=== PATIENT | female | born 1990 | race Caucasian/White ===

== ENCOUNTER 2016-08-23 04:58 | Inpatient (IN) | payer MEDICAID, OTHER ==
[2016-08-23] MEDS ORDERED: Magnesium Hydroxide 10 mL Oral Concentration PO PRN (10:00)
[2016-08-23] MEDS ORDERED: LORazepam 1 mg Tablet PO PRN (10:00)
[2016-08-23] MEDS ORDERED: Zolpidem 5 mg Tablet for FEMALE or >65YO PO PRN (10:00)
[2016-08-23] MEDS ORDERED: Benzocaine-Menthol Lozenge 2/Pkg PO PRN (10:00)
[2016-08-23] MEDS ORDERED: Alum-Mag Hydrox-Simeth 30 mL Suspension PO PRN (10:00)
[2016-08-23] MEDS ORDERED: FLUT15.88 NS (10:35)
[2016-08-23] MEDS ORDERED: ALBU8.5H2 INHALATION (10:35)
[2016-08-23] MEDS ORDERED: GABA600T2 PO ×2 (10:35→10:49)
[2016-08-23] MEDS ORDERED: PREG25CA PO (10:35)
[2016-08-23] MEDS ORDERED: DIAZ5TAB3 PO (10:35)
[2016-08-23] MEDS ORDERED: PROZ20 PO (10:35)
[2016-08-23] MEDS ORDERED: GABA-502 PO (10:49)
[2016-08-23] MEDS ORDERED: KLO5T PO (10:49)
[2016-08-23] MEDS ORDERED: BUSP15TA3 PO (10:49)
[2016-08-23] MEDS ORDERED: PROP20SO PO (10:49)
--- NOTE | 2016-08-23 11:19 | NUR ---
Admission note 26 year old female admitted for depression. Pt's mom 2 weeks ago. Her mom of alcoholism. Pt. states her brother and father live in [facility] [place]. She states she does not have any friends. She has a history of PTSD and used marijuana. She is lethargic and feels like everything is overwhelming, she feels dysregulated and she can't keep herself safe outside of the hospital. She is disheveled in appearance, pale and looks malnourished. She reports she only eats sometimes and she only sleeps sporadically with weird dreams. She is oriented to unit and independent with ADL's. She rates her depression and anxiety at 9/10. She reports no pain and rated SI at 7/10.
[2016-08-23] MEDS ORDERED: SENN-133 PO (11:47)
[2016-08-23] MEDS ORDERED: CLON0.122 PO (11:47)
[2016-08-23] MEDS ORDERED: LURA80TA3 PO (11:47)
[2016-08-23] MEDS ORDERED: LURA20TA PO (11:47)
[2016-08-23] MEDS ORDERED: SULI200T79 PO (11:47)
--- NOTE | 2016-08-23 14:01 | NUR ---
PRN med 1 mg. of Valium given PO per request for anxiety rated at 12/07 at 1346. Pt. was tearful after speaking to her father.
[2016-08-23] MEDS ORDERED: Albuterol HFA 60 Puff 8 Gm Inhaler INHALATION PRN (16:55)
[2016-08-23] MEDS ORDERED: Sodium Chloride NAS 45 mL Spray NASAL PRN (17:05)
--- NOTE | 2016-08-23 18:43 | NUR ---
Observations [id number] Pt admitted on unit at 0900 . Pt very anxious, not wanting to eat meals or participate in activities on unit. Pt states she is very depressed, expressing she doesn't want to be here and doesn't feel like she fits in. Pt remained in room, did not eat lunch, came out for dinner after staff encouragement and asked to return to room, not eating. Pt was observed crying in room. She was observed every 15 minutes of shift as directed.
[2016-08-23] MEDS: BusPIRone 15 mg Dividose Tablet PO SCH (21:23)
--- NOTE | 2016-08-23 21:36 | HP ---
[address] [address] HISTORY AND PHYSICAL PATIENT: ELENO MIGUEL : 1990 MR#: [id number] ADMIT: 08/23/2016 JOB ID: [id number] IDENTIFYING DATA: The patient is a 26-year-old female with a history of mood swings and self-reported bipolar disease, OCD, and borderline personality disorder, who presents with worsening suicidal ideation and inability to guarantee safety in the community and is admitted on a voluntary basis. REFERRAL INFORMATION: The patient is referred by [facility] in [place], [place]. CHIEF COMPLAINT: " I am really dysregulated and depressed and anxious." HISTORY OF PRESENT ILLNESS: The patient had apparently presented to [facility] and had worked out a safety plan with the director social service, but did not feel that she could adhere to it given her temporary living status. She therefore presented to [facility] for further assessment. The patient had recently been in [facility] starting in June and was released on August 15, 2016, in order to go to [place] [address] for treatment of marijuana use. The patient remained at [place] [address] from August 15 to August 18 and reportedly self-discharged. She reported that her father, who lives in [place], had wanted her to go there because of her cannabis use. She is currently staying with friends and is feeling uncomfortable and somewhat paranoid of them as they are using cannabis and other drugs and she feels the living situation is unsafe. In addition, the patient's mother a few weeks ago and her father does not feel she is stable enough to attend the . It is unclear what he is concerned of, but she speculates that he believes that she may make a scene at the . The patient's father is reportedly setting up a trust fund for the patient with money that her mother had left her and this will allow her to eventually rent an apartment, but she is unsure when that will occur. She reportedly can go to visit her father in [place] on August 31. The patient reports the 1st onset of psychiatric symptoms at age 13 and reports multiple inpatient hospitalizations. She self-reports a history of OCD, borderline personality disorder and bipolar disorder. On further assessment, she denies specific rituals or compulsions but does appear to be come perseverative as part of an overall anxiety picture when under stress. She does have a history of tumultuous relationships and self-injurious behavior and affect is instability. She does not present with any history of sustained manic behavior lasting more than a day or any hallucinations or other psychotic features. The patient reports that her mood shifts throughout the day in response to various stressors. She reports her anxiety is currently 10/10 and her depression is 10/10. She reports sleeping 1-2 hours at a time at night. Her appetite is decreased and her energy varies and is somewhat erratic, up or down. Her libido has been decreased for the last week. PAST PSYCHIATRIC HISTORY: Inpatient: The patient's 1st inpatient hospitalization was at age 21. Most recently, she was at [facility] from June to August 15 and reports approximately 30 days. She reports multiple inpatient hospitalizations. Outpatient: She is followed by Dr. Sandhu at [facility] the [facility] in [place]. PAST PSYCHIATRIC MEDICATIONS: Fluoxetine had been quite helpful for the patient. However, they reduced it from 60 to 40 while she was at [facility] in order to start Latuda. The patient has stopped Latuda due to it making her feel "weird" and does not desire to continue taking it. She reports she would prefer to increase her fluoxetine. This has not resulted in increased manic behavior according to the patient. Zoloft and Paxil were ineffective and Effexor caused significant withdrawal side effects. Depakote made her sick, and lithium, she did not like the feeling. She has never been tried on Cymbalta or Trileptal. She denies a history of actual suicide attempts and reports cutting on herself a couple of times in her 20s. FAMILY HISTORY: Significant for a mother with alcohol use and unclear mental illness. She denies a family history of suicide attempts. Her mother has a history of alcoholism. Her maternal grandfather and maternal aunt also had problems with alcohol. She denies any history of family medical illness. SOCIAL HISTORY: The patient was born and raised in [place] and has one younger brother, age 20, who lives in [place]. She completed high school and attended [employer] for two years. She has never been in the . She has not worked since last year but worked at a homeless youth halfway most recently. She is applying for disability and currently receives 197 dollars per month as well as food stamps. She is currently living with friends and staying on their couch. Her parents were together until she was 18, at which point, they split and she lived with her mother until the age of 19 when she went to college. She is not currently in a relationship and has no children. Her mother was reportedly emotionally abusive due to alcoholism. She denies any legal history. SUBSTANCE USE HISTORY: The patient denies use of alcohol and used marijuana "a lot" in the past but has only used it once since her discharge from [place] [address] on the August 18. She denies a history of cocaine, amphetamine, LSD, IV drugs, heroin, huffing or tobacco use. Her only inpatient substance treatment was at [place] [address] for marijuana. MEDICAL PROBLEMS: The patient denies current medical issues, history of loss of consciousness or seizure disorder. CURRENT MEDICATIONS: The patient had been most recently prescribed the following medications: 1. Senokot 8.6 mg twice a day. Patient reports not taking. 2. Sulindac 200 mg twice a day. The patient reports not taking. 3. Latuda 80 mg nightly with dinner. Not taking. 4. Neurontin 300 mg capsule three times a day. Occasionally taking. 5. Trazodone 100 mg nightly. Not taking. 6. Propranolol 10 mg one tablet three times a day. 7. Fluticasone nasal spray two sprays in affected nostril twice a day. 8. ProAir inhaler two puffs by mouth every 4 hours as needed for asthma due to allergy. 9. Prozac 40 mg daily. 10. Neurontin 600 mg nightly at bedtime. 11. Buspirone 15 mg twice daily. 12. Latuda 20 mg twice a day at lunch and at dinner. Not taking. 13. Vitamin D3 2000 units daily. Not taking due to cost. 14. Saline nasal spray two sprays in each nostril four times a day. ALLERGIES: The patient reports allergies that but does not recall medications. LABORATORY FINDINGS: CBC within normal limits. CMP within normal limits except for glucose of 106, nonfasting, and a GFR of 102. Urine tox screen was positive for cannabinoids. Urine was negative. Urinalysis was within normal limits. Vital signs as of midnight, temperature 36.7, heart rate 78, pulse of 80, respiratory rate 17. Blood pressure 108/77, 99% on room air. MENTAL STATUS EXAMINATION: Appearance: The patient is a somewhat unkempt-appearing female with light blue highlights in her hair, which is in disarray. Behavior: The patient is somewhat tearful in the examination and declines to leave the patient's room but does participate with the exam and makes fairly good eye contact. No psychomotor agitation or retardation is noted. Mood: "Anxious." Affect sad to anxious. Speech: Normal rate, volume, and tone. Content of thought: The patient reports that is unsure about suicidal ideation, but agrees to safety in the hospital. She denies homicidal ideation, auditory or visual hallucinations or thought control. She endorses mild paranoia due to being at her friend's house. Insight: Fair. Judgment: Fair. Thought processes: Linked, linear and goal directed. Memory and concentration: Grossly intact. Intelligence: In the average range based upon history and vocabulary. Orientation: She is alert and oriented to August 23, 2016, [place] "something" [place], [place]. Sensorium: Overall intact without evidence of delirium or dementia. IMPRESSION: The patient is a 26-year-old female with a history of multiple inpatient hospitalizations and rapidly fluctuating mood disorder with self-reported borderline personality disorder and bipolar disorder. The patient appears to meet criteria for at least generalized anxiety disorder but it is unclear whether she meets criteria for obsessive compulsive disorder. She does not appear to meet criteria for bipolar I disorder, and did not also appear to meet criteria for bipolar II disorder, but her affect of instability appears to be primarily due to borderline personality disorder. The patient would prefer to optimize her antidepressant and anxiolytic medication prior to her potential return to [place]. PROVISIONAL DIAGNOSES: Lena I. 1. Mood disorder, unspecified versus major depressive disorder, recurrent, without psychotic features. 2. Generalized anxiety disorder. 3. Rule out panic disorder. 4. Rule out obsessive compulsive disorder. Lena II. Borderline personality disorder by history. Lena III. None acute. Lena IV. Severe with recent of mother, homelessness, unemployed, poor coping skills. Lena V. Global Assessment of Functioning is 35. PLAN: 1. The patient will be admitted to the unit and provided a safe and secure environment. 2. The patient will be encouraged to participate with groups and other milieu activity. 3. The patient will be seen by the treatment team on a daily basis to assess symptom side effects and response to treatment. 4. The patient is currently denying suicidal ideation while in the hospital and agrees to safety and is therefore not in need of a one-to-one at this time. 5. The patient's medications will be adjusted as follows: a. Latuda will be discontinued as the patient has not been taking it and the patient declined Senokot and Sulindac. b. The patient is currently receiving Neurontin for reportedly anxiety and has no medical indication for this medication. This will be gradually tapered and currently will be reduced to only 600 mg at bedtime. c. Trazodone will be discontinued and replaced with mirtazapine for insomnia. d. Prozac will be increased to 60 mg. e. Buspirone will be increased to 20 mg twice daily. 6. The patient will use CBT worksheets and declines at this time tonight but agrees to work on them tomorrow as she has found this effective. 7. Anticipated length of stay is 5-7 days. 8. Will attempt to obtain records from [facility], although with the holiday weekend, this may be difficult prior to Thursday. GUANAKO
--- NOTE | 2016-08-23 22:04 | NUR ---
NURSING NOTE [id number] Mood: "really anxious" *cries* Affect: anxious, sad Behavior: isolating to her room the entire shift other than to come out for her dinner, of which she ate picked at. Declined to attend rec group but did attend wrap-up, declined other suggestions for activities (coloring, reading, movie night w/peers). Med compliant. Thought processes: endorsing high anxiety this evening; 12/07, depression, feeling hopeless and helpless. She denies SI/HI. She expressed to this clinical writer that she does not want to be here and that she feels it is the wrong place for her because "the people here are lower functioning than me" and she feels she doesn't belong here. She did say she knows she needs to stay here because "I have nowhere else to go." Reports now that her mother has passed she has nowhere to live and her father will only let her visit him but not live with him. Reports she has also been forbidden from attending her mother's as several of her family members are upset with her. PRNs Valium 1 mg @ 17:45
--- NOTE | 2016-08-24 06:34 | NUR ---
Nursing notes: molded parts inspector/ sleep Patient appears to be sleeping on safety checks during the night. Voices no complaints.
[2016-08-24] MEDS: Fluticasone 0.05% 15 Spray/2 Gm 16 Gm Nasal Spray NASAL SCH (08:13)
[2016-08-24] MEDS: BusPIRone 15 mg Dividose Tablet PO SCH ×2 (08:14→20:33)
--- NOTE | 2016-08-24 13:36 | PCM.PNPSY ---
Subjective Date of Service August 24, 2016 Subjective The patient reports that she is feeling better on this combination of medications. However, she still reports feeling unstable and having ongoing ruminative thoughts. She also endorses some racing thoughts. Although still quite high, she reports some improvement in anxiety and depression. She is denying medication side effects. She is reporting that she does not have suicidal ideation in the hospital but is unsure whether she could be safe upon discharge. The patient reports that she does not care for the milieu and feels that the patients are more severe than she had anticipated. She is requesting a transfer to another hospital. At present, [facility], [facility], and [facility] are all full. The patient was agreeable to working on CBT worksheets as discussed yesterday. Sleep: 8 hours, improved, but disrupted by patient activity early in the morning. Appetite: "A little better" Suicidal and homicidal ideation: Denies SI but reports unsure whether she will be safe upon discharge. No homicidal ideation. Auditory hallucinations: Denies Visual hallucinations: Denies Other Psychotic Symptoms: N/A Anxiety: 10 Depression: 8-12/07 Current Medications Current Medications Buspirone HCl 20 mg BID PO Last administered on 08/24/16 08:14; Admin Dose 20 MG; Start 08/23/16 at 20:30 Cholecalciferol 2,000 unit ONCE ONCE PO Last administered on 08/23/16 21:21; Admin Dose 2,000 UNIT; Start 08/23/16 at 17:05; Stop 08/23/16 at 17:18; Status DC Diazepam 1 mg Q4 PRN PO Last administered on 08/24/16 13:10; Admin Dose 1 MG; Start 08/23/16 at 13:05 Fluoxetine HCl 60 mg DAILY PO Last administered on 08/24/16 08:16; Admin Dose 60 MG; Start 08/24/16 at 08:30 Fluticasone Propionate 1 spray DAILY NASAL Last administered on 08/24/16 08:13 ; Admin Dose 1 SPRAY; Start 08/24/16 at 08:30 Gabapentin 600 mg HS PO Last administered on 08/23/16 21:29; Admin Dose 600 MG ; Start 08/23/16 at 20:30 Mirtazapine 15 mg HS PO Last administered on 08/23/16 21:26; Admin Dose 15 MG; Start 08/23/16 at 21:00 Propranolol HCl 10 mg TID PO Last administered on 08/24/16t 08:15; Admin Dose 10 MG; Start 08/23/16 at 20:30 Mental Status Exam Appearance: Unkept Attitude: Cooperative, Guarded Behavior: No unusual behavior Affect: Blunted Mood: Depressed, Anxious Thought Process/Associations: Logical/Sequential Speech Production: Normal Speech Rate: Lags/Latency Speech Articulation: Normal Thought Content: Negativistic, Perseveration Danger to Self/Suicidal Ideati: None (while in hospital), Active (unsure about safety and discharge) Danger to Others: None Delusions: Paranoid (Denies) Hallucinations: Auditory (Denies), Visual (Denies) Consciousness: Alert Orientation: Person, Place, Date, Situation Memory: Grossly Intact Estimate Intellectual Function: Average Basis for IQ estimate: Awareness current events, Word use/vocabulary, Educational history Attention/Concentration & Cogn: Grossly Intact Insight: Limited Judgement: Limited Mental Health Plan The patient is a 26-year-old female with a history of multiple inpatient hospitalizations and rapidly fluctuating mood disorder with self-reported borderline personality disorder and bipolar disorder. The patient appears to meet criteria for at least generalized anxiety disorder but it is unclear whether she meets criteria for obsessive compulsive disorder. She does not appear to meet criteria for bipolar I disorder, and did not also appear to meet criteria for bipolar II disorder, but her affective instability appears to be primarily due to borderline personality disorder. The patient would prefer to optimize her antidepressant and anxiolytic medication prior to her potential return to [place]. Today, she is reporting improvement in her anxiety but still reporting prominent depression. She reports mirtazapine has been more effective for her sleep. She denies side effects to medication changes. She is reporting that she is unsure for safety upon discharge and is requesting an alternate hospital placement. [place] Horse Shoe I. 1. Mood disorder, unspecified versus major depressive disorder, recurrent, without psychotic features. 2. Generalized anxiety disorder. 3. Rule out panic disorder. 4. Rule out obsessive compulsive disorder. [place] II. Borderline personality disorder by history. [place] III. None acute. [place] IV. Severe with recent of mother, homelessness, unemployed, poor coping skills. [place] V. Global Assessment of Functioning is 30. Treatments 1. The patient will be admitted to the unit and provided a safe and secure environment. 2. The patient will be encouraged to participate with groups and other milieu activity. 3. The patient will be seen by the treatment team on a daily basis to assess symptom side effects and response to treatment. 4. The patient is currently denying suicidal ideation while in the hospital and agrees to safety and is therefore not in need of a one-to-one at this time. The patient is agreeable to notifying staff should suicidal thoughts worsen. 5. Continue current medications, consider increasing buspirone to 30 mg twice daily 6. The patient will use CBT worksheets as she has found this effective. 7. Will attempt to obtain records from [facility], although with the holiday , this may be difficult prior to Thursday. 8. Should the patient request early discharge, as she has had a recent long hospitalization, early termination of a subsequent hospitalization and has not been taking medications as prescribed, the patient should be referred to the [facility] for assessment due to her recent severe suicidal ideation with plan and current inability to remain safe in the community. 9. We will continue to try to locate a hospital to transfer. 10. Anticipated length of stay is 5-7 days. Philpi Higgins MD August 24, 2016 13:36
--- NOTE | 2016-08-24 13:45 | NUR ---
Nursing Note [id number] Behavior S/O: Pt ate 75% of breakfast. Pt attended community meeting this morning. She has otherwise stayed in her room today. Little interaction with staff or peers. Pt has poor eye contact. Pt reports anxiety at a "8" on a scale of 1-10/10 the worst at 0815. Pt shaky while she was eating breakfast. Pt given Valium 1 mg at 0820. Pt reports it was "not really" helpful. She states, "This is not the place for me....I don't have any place else to go....I'm forced to go to group, but everyone talks nonsense & talks over you....Everyone here is so low level functioning....I want to go back to [facility]." [facility] contacted for openings available. None had any beds available. When informed pt became tearful, demanding to leave. Discussed with Dr. Higgins. Pt reported to him this morning that she felt she would be unable to keep herself safe. He advised [facility] be contacted & [facility] be dispatched for evaluation. Valium 1 mg given at 1310. A: Pt unable to control emotions. P: [facility] to be dispatched. Monitor suicidal ideation. Monitor medications & effects.
[2016-08-24 16:37] VITALS: BP 124/66; PULSE 65; RESP 16
--- NOTE | 2016-08-24 18:49 | NUR ---
Observations [id number] Pt isolated to room much of the day. When she was on unit, pt appeared very timid, had limited interaction with peers and staff and was emotional. Pt ate 75% of breakfast, 75% of lunch and 75% of dinner. Pt used the phone to talk with her father. She attended Community Meeting and later in the day requested some crossword puzzles to complete in her room. Pt was observed every 15 minutes of shift as directed.
--- NOTE | 2016-08-24 22:50 | NUR ---
NURSING NOTE [id number] Mood: "Okay" Affect: Flat. Slightly irritable at start of shift when she learned she was detained but appropriate and polite in conversation later in the shift. Appeared brighter by the end of shift. Behavior: more visible this evening than evening prior; watched a movie w/her peers (but did not interact w/them), made multiple phone calls. Med compliant. Thought processes: endorsed anxiety 09/06 and requested a PRN for it. 1 mg Valium PRN given @ 17:33 and again at HS. Denies SI/HI. Reports she would be safe outside of a hospital environment and does not want to hurt herself.
--- NOTE | 2016-08-25 05:11 | NUR ---
Nursing note: awake overnight counselor/ sleep Patient appears to be sleeping on safety checks during the night. No complaints voiced.
[2016-08-25] MEDS: BusPIRone 15 mg Dividose Tablet PO SCH ×2 (08:21→20:50)
[2016-08-25] MEDS: Fluticasone 0.05% 15 Spray/2 Gm 16 Gm Nasal Spray NASAL SCH (08:21)
--- NOTE | 2016-08-25 11:45 | NUR ---
Nursing Note [id number] Behavior S/O: Pt ate 75% of breakfast & 50% of lunch. Pt attended community meeting this morning. She has been out in the milieu watching TV, but has had no observed interactions with peers. Pt reported she has a plan in place when she is able to discharge. Pt rates her mood at a "6" on a scale of 1-10/10 the best. Pt denies suicidal ideation. Pt took all medications as ordered. Affect is brighter. Conversation tracking clear & organized with normal rate & rhythm. Pt only spoke on a superficial basis. A: Pt is guarded & isolative. P: Provide supportive environment. Monitor medications & effects.
[2016-08-25 17:07] VITALS: BP 111/71; PULSE 89; RESP 16
--- NOTE | 2016-08-25 17:51 | PCM.PNPSY ---
Subjective Date of Service August 25, 2016 Subjective The patient is reporting that she is feeling "good today" and is denying side effects. She reports feeling less depressed and hopeless. She also reports feeling less fidgety. She reports that she can stay with a friend in the [facility] but does not know her address. She reports that she is eligible for Medicaid taxi. She looks forward to doing dialectical behavioral therapy at [facility] upon discharge. At the end of the week, her father was confirmed to be providing a train ticket to take her back to live with the family in [place]. She reports that she will return on September 07 and stay with a family friend. She states that should she have worsening suicidal thoughts she continues coloring, and going for long walks. She reports the Valium 1 mg appears to be effective for anxiety. Sleep: Good, 8+ hours per staff. Appetite: "Better" Suicidal and homicidal ideation: "I do not have any Auditory hallucinations: Denies Visual hallucinations: Denies Other Psychotic Symptoms: N/A Anxiety: 07/07 Depression: 3-07/07 Current Medications Current Medications Buspirone HCl 20 mg BID PO Last administered on 08/25/16 08:21; Admin Dose 20 MG; Start 08/23/16 at 20:30 Fluoxetine HCl 60 mg DAILY PO Last administered on 08/25/16 08:21; Admin Dose 60 MG; Start 08/24/16 at 08:30 Fluticasone Propionate 1 spray DAILY NASAL Last administered on 08/25/16 08:21 ; Admin Dose 1 SPRAY; Start 08/24/16 at 08:30 Gabapentin 600 mg HS PO Last administered on 08/24/16 20:32; Admin Dose 600 MG ; Start 08/23/16 at 20:30 Mirtazapine 15 mg HS PO Last administered on 08/24/16 20:33; Admin Dose 15 MG; Start 08/23/16 at 21:00 Propranolol HCl 10 mg TID PO Last administered on 08/25/16 15:04; Admin Dose 10 MG; Start 08/23/16 at 20:30 Mental Status Exam Vital Signs Vital Signs Date Time Temp Pulse Resp B/P Pulse Ox O2 Delivery O2 Flow Rate FiO2 08/25/16 17:07 36.7 89 16 111/71 Appearance: Neat/well groomed Attitude: Pleasant, Cooperative Behavior: No unusual behavior Affect: Well Modulated/Appropriate Mood: Euthymic Thought Process/Associations: Logical/Sequential Speech Production: Normal Speech Rate: Normal Speech Articulation: Normal Thought Content: Appropriate Danger to Self/Suicidal Ideati: None Danger to Others: None Hallucinations: Auditory (Denies), Visual (Denies) Consciousness: Alert Orientation: Person, Place, Date, Situation Memory: Grossly Intact Estimate Intellectual Function: Average Basis for IQ estimate: Awareness current events, Word use/vocabulary, Educational history Attention/Concentration & Cogn: Grossly Intact Insight: Limited Judgement: Limited (improving) Mental Health Plan The patient is a 26-year-old female with a history of multiple inpatient hospitalizations and rapidly fluctuating mood disorder with self-reported borderline personality disorder and bipolar disorder. The patient appears to meet criteria for at least generalized anxiety disorder but it is unclear whether she meets criteria for obsessive compulsive disorder. She does not appear to meet criteria for bipolar I disorder, and did not also appear to meet criteria for bipolar II disorder, but her affective instability appears to be primarily due to borderline personality disorder. The patient would prefer to optimize her antidepressant and anxiolytic medication prior to her potential return to [place]. The patient reports that she is feeling much better today and denies all suicidality. She reports mirtazapine has been more effective for her sleep and is experiencing no side effects. She denies side effects to other medication changes and feels that they have been helpful. She indicates that she feels she can remain safe outside of the hospital. All offices are closed for making appointments as is the Medicaid. The information the patient provided regarding the trip back to [place] was confirmed and her friend reports that she is able to stay in [place] until she goes to [place]. Liberty Liberty I. 1. Mood disorder, unspecified versus major depressive disorder, recurrent, without psychotic features. 2. Generalized anxiety disorder. 3. Rule out panic disorder. 4. Rule out obsessive compulsive disorder. [place] II. Borderline personality disorder by history. [place] III. None acute. [place] IV. Severe with recent of mother, homelessness, unemployed, poor coping skills. [place] V. Global Assessment of Functioning is 40 Treatments 1. The patient will be admitted to the unit and provided a safe and secure environment. 2. The patient will be encouraged to participate with groups and other milieu activity. 3. The patient will be seen by the treatment team on a daily basis to assess symptom side effects and response to treatment. 4. The patient is currently denying suicidal ideation while in the hospital and agrees to safety and is therefore not in need of a one-to-one at this time. The patient is agreeable to notifying staff should suicidal thoughts worsen. 5. Continue current medications, consider increasing buspirone to 30 mg twice daily 6. The patient will use CBT worksheets as she has found this effective. 7. Will attempt to obtain records from [place], although with the holiday , this may be difficult prior to Thursday. 8. The patient is currently on a 72 hour hold and appears to be stabilizing and has an appropriate discharge plan and will likely be able to be discharged tomorrow. 9. The patient is no longer wanting inpatient hospitalization 10. Anticipated length of stay is 2-3 days. Philip Higgins MD August 25, 2016 17:51
--- NOTE | 2016-08-25 18:47 | NUR ---
Observations [id number] Pt more active on unit today, spending time in common areas and interacting with staff and patients. Pt's goal was to discharge today, but due to transportation issues was not able to leave. Pt was friendly with staff and peers, and avioded conflict on the unit. She ate an average of 75%. She was observed every 15 minutes of shift as directed.
--- NOTE | 2016-08-25 19:32 | NUR ---
NURSING NOTE [id number] Mood: "frustrated" Affect: flat, annoyed w/staff at start of shift but later appropriate and brighter Behavior: watching TV in common area at start of shift. Requested PRN for 6/10 anxiety at 15:05 and was given Valium 1 mg. Social w/select peers. Intermittently makes phone calls. Thought processes: reports she is frustrated that staff will not call the previous hospital she stayed at to ask that they pay for her to take a taxi down to [place]. When it was explained to her that another hospital will not do this, and that case management is experienced in arranging for transportation, the pt. stated she felt it was unacceptable that staff would not at least try to call them. She denied having any safety issues this shift, denied SI, reports she is motivated for discharge and feels she would be happier in the community than continuing being on this unit.
--- NOTE | 2016-08-26 05:27 | NUR ---
OBSERVATIONS Pt was pleasant and cooperative with staff. Pt spent most of the shift watching television but socialized very little. The remainder of the shift was spent in her room. Pt fell asleep early, slept through the night. Maintained Q15 checks for safety as directed.
--- NOTE | 2016-08-26 06:03 | NUR ---
[facility] Nursing Note 7pm to 7am Pt asleep at start of shift and remained asleep the duration of the shift. Pt slept 7.75 hours last night.
[2016-08-26 08:25] VITALS: BP 114/81; PULSE 89; RESP 16
[2016-08-26] MEDS: Fluticasone 0.05% 15 Spray/2 Gm 16 Gm Nasal Spray NASAL SCH (08:46)
[2016-08-26] MEDS: BusPIRone 15 mg Dividose Tablet PO SCH (08:48)
--- NOTE | 2016-08-26 09:38 | PCM.DIMED ---
Discharge Instructions Date of Service August 26, 2016 Dates of Hospitalization August 23, 2016 at 08:51 Discharge Diagnosis Discharge Diagnosis [place] I. 1. Mood disorder, unspecified versus major depressive disorder, recurrent, without psychotic features. 2. Generalized anxiety disorder. 3. Rule out panic disorder. 4. Rule out obsessive compulsive disorder. [place] II. Borderline personality disorder by history. [place] III. None acute. [place] IV. Severe with recent of mother, homelessness, unemployed, poor coping skills. [place] V. Global Assessment of Functioning is 50 Diet Discharge Diet: No restrictions Activity Discharge Activity: No restrictions Patient Instructions Patient Instructions Should you have any thoughts of harming yourself or others, please call the crisis line, your provider, 911, or go to the nearest Emergency Department. Do not change or discontinue your medications without discussing with your provider. You have been given a prescription for 14 days supply of your medication Follow-up plan Per Counselor instructions at [facility] Philip Higgins MD August 26, 2016 09:38
[2016-08-26] MEDS ORDERED: BUSP15TA3 PO (09:47)
[2016-08-26] MEDS ORDERED: HYDR50CA3 PO (09:47)
[2016-08-26] MEDS ORDERED: FLUO20CA25 PO (09:47)
[2016-08-26] MEDS ORDERED: PROP20TA5 PO (09:47)
[2016-08-26] MEDS ORDERED: GABA600T2 PO (09:47)
[2016-08-26] MEDS ORDERED: FLUT15.88 NS (09:47)
[2016-08-26] MEDS ORDERED: DIAZ2TAB PO (09:47)
[2016-08-26] MEDS ORDERED: MIRT15TA6 PO (09:47)
--- NOTE | 2016-08-26 11:37 | NUR ---
Nursing Note Discharge Pt left with taxi at 1100 to a friend's house in [place]. Pt pleasant & cooperative with discharge process. Pt denied suicidal/homicidal ideation. No hallucinations. All belongings with pt. Pt signed all paperwork. Pt will make her own appointment with Dr. He Sandhu. Pt filled out safety plan. Prescriptions faxed to [facility]. ([facility]inals sent with pt for pharmacy to verify diazepam.)
--- NOTE | 2016-08-26 17:30 | NUR ---
Manager Intermediate/Counselor: S: "I'm moving to [place] Thursday." O: Patient denied S/I and H/I. Patient denies auditory and visual hallucinations. Case management attempted to schedule an out-patient appointment for patient and left a voice message for doctor's office to call back. Case management did not receive a call back from patient's out-patient provider before patient discharged, so patient requested to schedule her out-patient appointment after discharge. A: Patient is cooperative, hopeful. P: Follow care plan, with coordinate out-patient provider.
--- NOTE | 2016-08-26 23:19 | PCM.DC.MED ---
Discharge Summary Date of Service August 26, 2016 Dates of Hospitalization Date of Hospital Admission August 23, 2016 at 08:51 Date of Discharge: August 26, 2016 Providers: Admitting Physician: Rei Jordan MD Primary Care Physician: Gerald Attending Physician: Rei Jordan MD Diagnosis at Time of Discharge Diagnosis at Time of Discharge [place] I. 1. Mood disorder, unspecified versus major depressive disorder, recurrent, without psychotic features. 2. Generalized anxiety disorder. 3. Rule out panic disorder. 4. Rule out obsessive compulsive disorder. [place] II. Borderline personality disorder by history. [place] III. None acute. [place] IV. Severe with recent of mother, homelessness, unemployed, poor coping skills. [place] V. Global Assessment of Functioning is 50 Brief History IDENTIFYING DATA: The patient is a 26-year-old female with a history of mood swings and self- reported bipolar disease, OCD, and borderline personality disorder, who presents with worsening suicidal ideation and inability to guarantee safety in the community and is admitted on a voluntary basis. REFERRAL INFORMATION: The patient is referred by [facility] in [place], [place]. CHIEF COMPLAINT: " I am really dysregulated and depressed and anxious." HISTORY OF PRESENT ILLNESS: The patient had apparently presented to [facility] and had worked out a safety plan with the director of social work, but did not feel that she could adhere to it given her temporary living status. She therefore presented to [facility] for further assessment. The patient had recently been in [facility] starting in June and was released on August 15, 2016, in order to go to [place] [address] for treatment of marijuana use. The patient remained at [place] [address] from August 15 to August 18 and reportedly self-discharged. She reported that her father, who lives in [place], had wanted her to go there because of her cannabis use. She is currently staying with friends and is feeling uncomfortable and somewhat paranoid of them as they are using cannabis and other drugs and she feels the living situation is unsafe. In addition, the patient's mother a few weeks ago and her father does not feel she is stable enough to attend the . It is unclear what he is concerned of, but she speculates that he believes that she may make a scene at the . The patient's father is reportedly setting up a trust fund for the patient with money that her mother had left her and this will allow her to eventually rent an apartment, but she is unsure when that will occur. She reportedly can go to visit her father in [place] on August 31. The patient reports the 1st onset of psychiatric symptoms at age 13 and reports multiple inpatient hospitalizations. She self-reports a history of OCD, borderline personality disorder and bipolar disorder. On further assessment, she denies specific rituals or compulsions but does appear to be come perseverative as part of an overall anxiety picture when under stress. She does have a history of tumultuous relationships and self-injurious behavior and affect is instability. She does not present with any history of sustained manic behavior lasting more than a day or any hallucinations or other psychotic features. The patient reports that her mood shifts throughout the day in response to various stressors. She reports her anxiety is currently 10/10 and her depression is 10/10. She reports sleeping 1-2 hours at a time at night. Her appetite is decreased and her energy varies and is somewhat erratic, up or down. Her libido has been decreased for the last week. Hospital Course The patient was admitted to the unit and her medications were adjusted as follows: a. Latuda will be discontinued as the patient has not been taking it and the patient declined Senokot and Sulindac. b. The patient is currently receiving Neurontin for reportedly anxiety and has no medical indication for this medication. This will be gradually tapered and currently will be reduced to only 600 mg at bedtime and she was further encouraged to decrease after discharge. c. Trazodone was discontinued and replaced with mirtazapine for insomnia and augmentation. d. Prozac was increased to 60 mg. e. Buspirone was increased to 20 mg twice daily The patient reported that she was feeling better on this combination of medications. She was also reporting that she did not have suicidal ideation in the hospital but was unsure whether she could be safe upon discharge. The patient reported that she did not care for the milieu and felt that the patients were more severe than she had anticipated. She requested to transfer to another hospital, but when all beds were found to be full, she requested discharge, As she has had a recent long hospitalization, early termination of a subsequent hospitalization and had not been taking medications as prescribed, the patient was referred to the [facility] for assessment due to her recent severe suicidal ideation with plan and current reported inability to remain safe in the community. She was subsequently placed on a 72 hour hold. The following day patient the patient reported that she was feeling better, denying all suicidality, and that she could stay with a friend in the [place] area (this was confirmed with her friend). She reported that she is eligible for Medicaid taxi. She reported that she was looking forward to doing dialectical behavioral therapy at [facility] upon discharge. At the end of the week, her father was confirmed to be providing a train ticket to take her back to live with the family in [place]. She reports that she will return on September 07 and stay with a family friend. She stated that should she have worsening suicidal thoughts she continues coloring, and going for long walks. She reports the Valium 1 mg appears to be effective for anxiety. At the time of discharge, the patient was reporting her mood was "good". Sleep was reported as "good, better with mirtazapine" 7.75+ hours per staff. And appetite was reported as good. Her anxiety was reported as 0/10 and depression as 0/10. She denied auditory or visual hallucinations, paranoia, and any thought, active intent or plan of hurting herself or others. She reported that she realized after receiving the 72 hour hold that in order to benefit from any programs, she had to do them. She indicated that moving forward she would try to be more engaged in her own future. She denied medication side effects. Exam Vital Signs (Last) Date Time Temp Pulse Resp B/P Pulse Ox O2 Delivery O2 Flow Rate FiO2 08/26/16 08:25 36.3 89 16 114/81 Exam Mental Status Exam Appearance: Neat, well groomed Attitude: Cooperative, Pleasant Behavior: No unusual behavior Affect: Euthymic Mood: "pretty good" Thought Process/Associations: Logical/Sequential Speech Production: Normal Speech Rate: Normal Speech Articulation: Normal Thought Content: No abnormal thoughts, focused on future Danger to Self/Suicidal Ideation: None Danger to Others: None Delusions: Paranoid (Denies) Hallucinations: Auditory (Denies), Visual (Denies) Consciousness: Alert Orientation: Person, Place, Date, Situation Memory: Grossly Intact Estimate Intellectual Function: Average Basis for IQ estimate: Awareness current events, Word use/vocabulary, Educational history Attention/Concentration & Cognition: Grossly Intact Insight: Fair Judgement: Fair Discharge Medications Discharge Medications Albuterol HFA (Proair HFA) 8.5 Gm Hfa.aer.ad 2 PUFFS INHALATION Q6H (Reported) Buspirone (Buspirone) 15 Mg Tablet 20 MG PO BID Prescribed by: MARLYN HIGGINS MD Fluoxetine (Fluoxetine) 20 Mg Capsule 60 MG PO DAILY Prescribed by: MARLYN HIGGINS MD Fluticasone Propionate (Fluticasone Propionate) 50 Mcg/Actuation Morven.susp 15.8 ML NS 1 spray daily 1-2 sprays each nostril once daily Prescribed by: MARLYN HIGGINS MD Gabapentin (Gabapentin) 600 Mg Tablet 600 MG PO HS Prescribed by: MARLYN HIGGINS MD Mirtazapine (Mirtazapine) 15 Mg Tablet 15 MG PO HS Prescribed by: MARLYN HIGGINS MD Propranolol HCl (Propranolol HCl) 20 Mg Tablet 10 MG PO TID Prescribed by: MARLYN HIGGINS MD As needed Diazepam (Valium) 2 Mg Tablet 1 MG PO BID PRN PRN Anxiety/agitation Prescribed by: MARYLN HIGGINS MD Hydroxyzine Pamoate (HydrOXYzine Pamoate) 50 Mg Capsule 50 MG PO BID PRN PRN FOR ANXIETY,AGIT, OR INSOMNIA Prescribed by: MARLYN HIGGINS MD Followup Plan Disposition: No indication for further usp at this time, the patient was requesting discharge and was released from her hold. The patient verbally consented to take the prescribed medications. The patient verbally expressed understanding of the risks, benefits, alternative treatment options, and risks of not taking the prescribed medication. The patient verbally expressed understanding of the medication instructions, that she will adhere to the prescribed medication, and that she will go to all aftercare scheduled appointments. Follow-up plan Per Counselor instructions at [facility] Discharge Diet: No restrictions Discharge Activity: No restrictions Patient Instructions Should you have any thoughts of harming yourself or others, please call the crisis line, your provider, 911, or go to the nearest Emergency Department. Do not change or discontinue your medications without discussing with your provider. You have been given a prescription for 14 days supply of your medication Marlyn Higgins MD August 26, 2016 23:19
--- NOTE | 2016-08-27 10:07 | NUR ---
Medication change after D/C [facility] in [place] ([phone]) requested change in buspirone dosage d/t insurance will only pay for 2 tablets daily. Buspirone only comes in 10, 15, 30, [address] Higgins changed dosage to 30 mg PO BID-28 tabs. Script called to pharmacy.
== END 2016-08-26 11:15 | disposition home or self-care (01) | DRG 753 ==
LOC: MHC 08:51
PROVIDERS: ADMIT Psychiatry & Neurology Psychiatry; ATTEND Psychiatry & Neurology Psychiatry
DX: F39 Unspecified mood [affective] disorder (principal); F41.1 Generalized anxiety disorder; F60.3 Borderline personality disorder